=== PATIENT | male | born 1985 | race Caucasian/White ===

== ENCOUNTER 2018-01-18 19:27 | Emergency (ER) | payer OTHER ==
[2018-01-18] MEDS ORDERED: Acetaminophen 500 MG TAB ONE (20:12)
[2018-01-18] MEDS ORDERED: predniSONE 20 MG TAB ONE (20:12)
== END 2018-01-18 20:42 | disposition home or self-care (01) ==
LOC: EEVIPCON 19:27 → ERS 19:27
DX: G51.0 Bell's palsy (principal); Z87.891 Personal history of nicotine dependence
CPT/HCPCS: 99283; J7506